=== PATIENT | male | born 1950 | race African-American/Black ===

== ENCOUNTER 2016-12-14 03:21 | Inpatient (IN) | payer MEDICARE, OTHER ==
[2016-12-11 12:53] LABS: BASOPHILS 0.3 %; BASOPHILS ABSOLUTE 0.01 10/3/uL (0.0-0.16); EOSINOPHILS 5.5 %; EOSINOPHILS ABSOLUTE 0.19 10/3/uL (0.0-0.53); HEMOGLOBIN 10.2 g/dL (13.6-17.8); IMMATURE GRANULOCYTES 0.3 %; IMMATURE GRANULOCYTES ABSOLUTE 0.01 10/3/uL (0.0-0.11); LYMPHOCYTES 27.3 %; LYMPHOCYTES ABSOLUTE 0.95 10/3/uL (0.67-4.30); MEAN CORPUS HGB CONC 32.9 g/dL (32.0-36.0); MEAN CORPUSCULAR HEMOGLOB 27.3 pg (26.0-34.0); MEAN CORPUSCULAR VOLUME 82.9 fL (80-100); MONOCYTES 9.8 %; MONOCYTES ABSOLUTE 0.34 10/3/uL (0.21-1.20); NEUTROPHILS 56.8 %; NEUTROPHILS ABSOLUTE 1.98 10/3/uL (2.02-8.40); PLATELET COUNT 299 10/3/uL (150-400); RBC DISTRIBUTION WIDTH 17.9 % (12.0-16.0); RED CELL COUNT 3.74 10/6/uL (4.7-6.1); RETICULOCYTE COUNT 1.7 % (0.5-2.5); RETICULOCYTE COUNT ABSOLUTE 63.6 10/3/uL (20.2-119.8); WHITE BLOOD CELLS 3.5 10/3/uL (4.5-10.5)
[2016-12-11 12:56] LABS: MANUAL DIFF NO %
[2016-12-11 13:11] LABS: ANISOCYTOSIS 1+ (5-10/OIF) (0-5/OIF); PLATELET ESTIMATE ADQ (ADEQUATE); POIKILOCYTOSIS 1+ (5-10/OIF) (0-5/OIF); TARGET CELLS FEW (3-10/OIF) (0-1/OIF)
[2016-12-11 13:12] LABS: ELLIPTOCYTES 1+ (3-10/OIF) (0-2/OIF); HYPOCHROMIA 1+ (3-10/OIF) (0-2/OIF); MICROCYTES 1+ (5-10/OIF) (0-5/OIF)
[2016-12-11 13:14] LABS: T PROTEIN (ELECT)(NOT OR 6.8 G/DL (6.0-8.5)
[2016-12-11 13:25] LABS: A/G RATIO 1.1 (0.7-1.9); ALBUMIN 3.6 G/DL (3.5-5.0); ALKALINE PHOSPHATASE 92 U/L (45-117); BUN (BLOOD UREA NITROGEN) 18 MG/DL (6-23); CHLORIDE, SERUM 108 MMOL/L (96-112); CO2 (CARBON DIOXIDE) 28 MMOL/L (24-34); CREATININE 1.21 MG/DL (0.70-1.30); GFR AFRICAN AMERICAN 72 ML/MIN (>=60); GFR NON AFRICAN AMERICAN 62 ML/MIN (>=60); GLOBULIN 3.3 G/DL (2.5-4.1); GLUCOSE, SERUM 111 MG/DL (60-99); IMMUNOGLOBULIN A 80 MG/DL (70-420); IMMUNOGLOBULIN G 1110 MG/DL (673-1464); IMMUNOGLOBULIN M 31 MG/DL (30-270); PHOSPHORUS, SERUM 4.7 MG/DL (2.5-4.5); POTASSIUM, SERUM 4.8 MMOL/L (3.5-5.3); SGOT(AST) 15 U/L (5-40); SGPT(ALT) 15 U/L (5-65); SODIUM, SERUM 143 MMOL/L (135-148); TOTAL BILIRUBIN 0.2 MG/DL (0-1.2); TOTAL PROTEIN 6.9 G/DL (6.0-8.5)
[2016-12-13 11:34] LABS: A/G 1.48 RATIO (0.9-2.10); ABNORMAL PEAK 1 0.13 G/DL; ALB RELATIVE % 59.7 % (60.0-89.0); ALBUMIN (ELECTRO) 4.06 GM/DL (3.2-5.5); ALPHA 1 (ELECTRO) 0.21 GM/DL (0.1-0.4); ALPHA 1 RELAT % (NOT ORD) 3.1 % (1.0-4.0); ALPHA 2 (ELECTRO) 0.82 GM/DL (0.5-1.10); ALPHA 2 RELAT % 12.1 % (4.5-26.0); BETA GLOBULIN (SPE) 0.69 GM/DL (0.60-1.30); BETA RELATIVE % 10.1 % (9.0-22.0); GAMMA GLOBULIN (SPE) 1.02 G/DL (0.70-1.60)
[2016-12-13 19:02] LABS: KAPPA FLC 2.14 mg/dL (0.33-1.94); KAPPA LAMBDA FLC RATIO 1.24 (0.26-1.65); LAMBDA FLC 1.73 mg/dL (0.57-2.63)
--- NOTE | ~2016-12-14 | DS ---
Discharge Summary [facility] [address] [place]. [address] NAME: ERICKA ARCE : 50 STATUS : DIS IN PAT#: [id number] AGE: 66 ADM/REG DATE : 12/14/16 MR#: [id number] REPORT SERV DATE: 12/17/16 DICTATED BY: JOSEPH PHILIP DATE: 12/15/16 REPORT STATUS : Draft TRANSCRIBED BY: MODL DATE: 12/15/16 ADMISSION DATE: 12/14/2016 DISCHARGE DATE: 12/15/2016 DISCHARGE DIAGNOSES: 1. Toxic metabolic encephalopathy, now resolved. 2. Multiple myeloma. 3. Chronic pain syndrome. CONSULTANTS DURING THIS HOSPITALIZATION: Dr. Reggie Solis of Neurology. INVASIVE PROCEDURES DONE DURING THIS HOSPITALIZATION: Lumbar puncture. BRIEF HISTORY OF PRESENT ILLNESS: The patient is a 66-year-old male, whose care has been rendered outside [facility], mainly in [place] and [place] for multiple myeloma, came in with jerking, lethargy, and confusion. For a detailed history and physical exam, please see note dictated by Dr. Serafin Gamble on 12/14/2016. HOSPITAL COURSE: After being admitted to the hospital, this patient initially was thought to have toxic metabolic encephalopathy, anomalous significance. He underwent a lumbar puncture and the CSF fluid was completely negative without any evidence of any acute meningitis. Neurology saw the patient in consultation and thought that this patient may have had withdrawal from his pain medications as he took his sister's baclofen to supplement when he ran out of his oxycodone and OxyContin. He gives multiple different story lines about what happened to his pain medications. I did try to contact the physicians in [place], his palliative care physician; however, I have not had a return phone call from them. We did do an MRI/MRA of his brain and neck, which were all negative. CT initially done in the emergency room was negative as well. At this point, I have discussed with the patient that I can give him five days of oral pain medications to take in the home setting and then he would have to follow up with his physicians in [place] for further treatment. He understands and agrees. We have discussed about restraining from taking other people's medications as well. DISCHARGE DISPOSITION: Home. DISCHARGE ACTIVITY: As tolerated. DISCHARGE DIET: Low-sodium diet. DISCHARGE MEDICATIONS: 1. OxyContin SR 20 mg p.o. twice daily, #10 with no refills given. 2. Oxycodone 5 mg p.o. four times daily. He will have to get this from his oncologist. 3. Zovirax 800 mg twice daily. DISCHARGE FOLLOWUP: With his oncologist in [place] and palliative care physician. Discharge Summary [address] [place]. [address] NAME: ERICKA ARCE : 50 STATUS : DIS IN PAT#: [id number] AGE: 66 ADM/REG DATE : 12/14/16 MR#: [id number] REPORT SERV DATE: 12/17/16 DICTATED BY: JOSEPH PHILIP DATE: 12/15/16 REPORT STATUS : Draft TRANSCRIBED BY: KRISTY DATE: 12/15/16 More than 30 minutes spent planning this patient's discharge, reconciling medications, writing prescriptions, discussing hospital care, and followup with the patient and documenting this discharge. SEDA/KRISTY Joseph Philip M.D. / [id number] CC: Rakan Faustin MD Kelly Trudy
--- NOTE | ~2016-12-14 | CN ---
Consultation Report [facility] [address] [place]. [address] NAME: ERICKA ARCE : 50 STATUS : ADM Ana PAT#: [id number] AGE: 66 ADM/REG DATE : 12/14/16 MR#: [id number] REPORT SERV DATE: 12/14/16 DICTATED BY: KAYE ACOSTA DATE: 12/14/16 REPORT STATUS : Draft TRANSCRIBED BY: MODL DATE: 12/14/16 NEUROLOGY CONSULTATION DATE OF CONSULTATION: 12/14/2016 REASON FOR CONSULTATION: Encephalopathy and seizure, history of multiple myeloma. PCP: (His PCP is in [place]). The patient is here visiting his sister. ONCOLOGIST: Dr. Pepe Martin from the [facility]. HOSPITALIST: Dr. Joseph Philip. HISTORY OF PRESENT ILLNESS: The patient is a 66-year-old male, who was diagnosed with multiple myeloma back in September of 2015. He has had stem-cell transplantation and chemotherapy. His last stem-cell transplant was done in October of 2016, and his chemotherapy in November of 2016. He has been deemed "in remission." The patient flew down from [place] to visit his sister this month. According to the patient, he had to ship several things home because he was unable to carry it back in his suitcase. He must have accidentally "packed his narcotics," because by Saturday, he could not find his oxycodone or his OxyContin. Consequently, he has not taken his narcotics since Saturday. , the patient was out eating ice cream with his family. He was in [place], and about 3 p.m. he suddenly felt very "dizzy." He became diaphoretic and hot. His stated that he had a strange staring look on his face. They got him into the car and he started to experience nausea and vomiting. He also had "shakes." They brought him to the emergency room for further evaluation and treatment. Upon further questioning, the admits that she gave him some of her baclofen, which she takes for her back pain. She takes 10 mg at a time. She gave him four of those, and yesterday he took two baclofen in the morning and two in the evening. PAST MEDICAL HISTORY: Multiple myeloma, hyperlipidemia, hypertension, and obstructive sleep apnea. PAST SURGICAL HISTORY: Left rotator cuff repair, right leg surgery, and hernia repair. CURRENT MEDICATIONS: Oxycodone 15 mg q.i.d., OxyContin 20 mg b.i.d., and acyclovir 800 mg t.i.d. ALLERGIES: NONE. SOCIAL HISTORY: The patient is . He lives with his in [place]. He has one daughter, who lives in [place]. He is retired from maintenance work. He is a remote smoker. Drinks alcohol socially and denies any use of recreational drugs. Consultation Report [place] [address] [id number] [facility] [place]. [address] NAME: ERICKA ARCE : 50 STATUS : ADM Ana PAT#: [id number] AGE: 66 ADM/REG DATE : 12/14/16 MR#: [id number] REPORT SERV DATE: 12/14/16 DICTATED BY: KAYE ACOSTA DATE: 12/14/16 REPORT STATUS : Draft TRANSCRIBED BY: KRISTY DATE: 12/14/16 FAMILY HISTORY: The patient's mother in her age 80s from congestive heart failure. His father in his 80s from colon cancer. He has two sisters who are relatively healthy. REVIEW OF SYSTEMS: For pertinent positives, please refer to the HPI. PHYSICAL EXAMINATION: GENERAL: The patient is a 66-year-old male, who is afebrile. VITAL SIGNS: Heart rate 80, respiratory rate 16, O2 saturations on room air 99%, and blood pressure 139/88. NEUROLOGIC: The patient is alert. He is oriented to person, place, and time. He is inappropriate at times, but will follow commands. Pupils are 4 mm PERRLA. Cranial nerves 2 through 12 are intact. Cpvvtm-pv-uxox, vixk-ft-gevp, no ataxia. He has no nuchal rigidity. Signs no pronator drift. He does have asterixis. No myoclonus. Upper extremity strength is 5/5. Upper DTRs 2+ bilaterally. No sensory deficits. Lower extremity strength is 5/5. Lower DTRs 2+ bilaterally. Downgoing toes. No reported sensory deficits. NECK: No carotid bruits, JVD, or thyromegaly. CHEST: Lung sounds are clear. CARDIAC: Regular rate and rhythm with a grade 1/6 systolic murmur. LABORATORY DATA: CBC is normal. BMP is normal. Lactate 2 and ammonia is less than 10. TSH is 0.357. Cerebrospinal fluid results, opening pressure was 10 cm of water. Glucose 83, protein 52.6. Serum protein electrophoresis, abnormal immunofixation, shows monoclonal IgG, kappa-lambda, FLC is mildly elevated at 2.14. ASSESSMENT/PLAN: 1. Acute metabolic encephalopathy, most likely due to encephalopathy which is resolving. 2. Narcotic withdrawal. Hospitalist will start the patient back on his narcotics. The patient will be given folate and thiamine. He was instructed not to abruptly withdraw his narcotic medications without assistance from a physician. He was also instructed not to take other people's medications. 3. Possible seizure. The patient is on seizure precautions. An EEG will be done while he is here in the hospital. 4. To rule out the remote possibility of stroke, the patient will undergo MRI of the brain with and without gadolinium and MRA of the head and neck. Thank you again for including us in consultation. We will continue to follow with you. MARIANA/KRISTY ERUM Monte / [id number] Consultation Report [address] [address] NAME: ERICKA ARCE : 50 STATUS : ADM Ana PAT#: [id number] AGE: 66 ADM/REG DATE : 12/14/16 MR#: [id number] REPORT SERV DATE: 12/14/16 DICTATED BY: KAYE ACOSTA DATE: 12/14/16 REPORT STATUS : Draft TRANSCRIBED BY: KRISTY DATE: 12/14/16 CC: Joseph Philip M.D.
--- NOTE | ~2016-12-14 | EEG ---
Electroencephalogram [address] [place]. [address] NAME: ERICKA ARCE : 50 STATUS : DIS IN PAT#: [id number] AGE: 66 ADM/REG DATE : 12/14/16 MR#: [id number] REPORT SERV DATE: 12/18/16 DICTATED BY: REGGIE SOLIS DATE: 12/17/16 REPORT STATUS : Draft TRANSCRIBED BY: KRISTY DATE: 12/17/16 REQUESTING PHYSICIAN: Joseph Philip M.D. INTERPRETING PHYSICIAN: Reggie Solis M.D. REASON FOR EEG: New onset seizures, history of chronic pain, possible narcotic withdrawal. 23 surface electrodes, 10-20 international placement was used. The patient was noted to be awake, drowsy, and asleep throughout the study. The background activity consisted of moderate voltage, relatively organized 9-10 cycles per second located in the posterior head regions. This activity attenuated moderately well with the eye opening maneuvers. During periods of light sleep, no significant abnormalities were detected; however, patient was observed to have loud snoring. The patient's supervisor cytology showed sinus rhythm, rate of approximately 72 beats per minute. No significant asymmetry of cerebral activity was noted. There was no evidence of paroxysmal epileptiform activity during this study. IMPRESSION: ESSENTIALLY NORMAL EEG, MODERATE AMOUNT OF LOW-VOLTAGE BETA RANGE ACTIVITY WAS NOTED WHICH MAY REPRESENT MEDICATION EFFECT. THE PATIENT WAS ALSO OBSERVED TO HAVE A LOUD SNORING DURING HIS SLEEP. RECOMMEND AN OUTPATIENT POLYSOMNOGRAPHY STUDY TO RULE OUT OBSTRUCTIVE SLEEP APNEA. NO EVIDENCE OF ASYMMETRY OR PAROXYSMAL ACTIVITY. NO PAROXYSMAL FEATURES WERE DETECTED DURING THIS STUDY. CLINICAL CORRELATION IS RECOMMENDED. PRITESH/KRISTY Reggie Solis MD / [id number] CC: Joseph Philip M.D.
--- NOTE | ~2016-12-14 | HP ---
History And Physical [address] [id number] [place]. [address] NAME: ERICKA ARCE : 50 STATUS : ADM Ana PAT#: [id number] AGE: 66 ADM/REG DATE : 12/14/16 MR#: [id number] REPORT SERV DATE: 12/14/16 DICTATED BY: KENNEDY RODRIGUEZ DATE: 12/14/16 REPORT STATUS : Draft TRANSCRIBED BY: MODL DATE: 12/14/16 DATE OF ADMISSION: 12/14/2016 CHIEF COMPLAINT: A 66-year-old male with history of chemotherapy and stem cell transplant for multiple myeloma, now presenting with severe encephalopathy, somnolence, and convulsions. HISTORY OF PRESENTING ILLNESS: The patient's history was obtained through an interview with the patient's (phone #[phone]), a limited interview with the patient himself. Apparently, the patient has been undergoing treatments for multiple myeloma with chemotherapy and stem cell transplant. To the best of our knowledge, he last had a stem- cell transplant in mid 10/2016 and then had chemotherapy in early 11/2016 (according to ). He was first diagnosed with multiple myeloma in 09/2015 and now is considered in "remission" according to the family. He is seen by Dr. Pepe Martin at the [facility] at fax #[phone]. It is in this context the patient was feeling quite well from his recent treatments, decided to come visit his sister, who is here in the [place] area, but then, about 3 p.m. on the afternoon leading up to admission, he had a sudden onset of somnolence, fatigue, and mental status changes. He became diaphoretic, had nausea, and one episode of vomiting at home (he has also had vomiting here in our hospital). He has had no real pain complaints. He used to have a right-sided PICC line and had some discomfort in that arm and ever since it was taken out a few weeks ago, has been complaining of pain still in that arm, but is unable to describe the pain now. He denies to us now any headache or chest pain, abdominal pain, or back pain and apparently, his was unaware of any pain complaints either prior to this presentation. The also describes jerking spells and while I am evaluating him here, he indeed does shake often, but it is not classic seizure-like activity, as the patient will often start jerking and still be able to respond to questions. He lost urine continence quite frequently throughout the last 24 hours and according to his , it is as described as being "completely out of it." No fevers or chills despite diaphoresis. He has had a poor appetite for a few days. He has no baseline dementia or mental status problems. REVIEW OF SYSTEMS: Otherwise, a 14-point review of systems was obtained and was negative, although could question validity in light of the patient's inability to answer for himself. History And Physical [address] [address] NAME: ERICKA ARCE : 50 STATUS : ADM Ana PAT#: [id number] AGE: 66 ADM/REG DATE : 12/14/16 MR#: [id number] REPORT SERV DATE: 12/14/16 DICTATED BY: KENNEDY RODIRGUEZ DATE: 12/14/16 REPORT STATUS : Draft TRANSCRIBED BY: KRISTY DATE: 12/14/16 PAST MEDICAL HISTORY: 1. Multiple myeloma diagnosed 09/2015, status post chemotherapy and stem cell transplant. 2. Elevated cholesterol. 3. Hypertension. 4. Obstructive sleep apnea. 5. No cardiac disease. PAST SURGICAL HISTORY: 1. Left rotator cuff repair. 2. Right leg surgery. 3. Hernia repair. ALLERGIES: NO KNOWN DRUG ALLERGIES AT THIS TIME. SOCIAL HISTORY: Quit smoking 08/2016. Drinks alcohol socially, but none recently. He and his live in [place]. They have been for 13 years. He is visiting his sister here in [place]. He has one daughter, who lives in [place], and he is retired from doing maintenance work. FAMILY HISTORY: No known cancer in the family. CURRENT MEDICATIONS: Unknown at this time. We have asked pharmacy to help us compile a medication list. PHYSICAL EXAMINATION: VITAL SIGNS: Temperature 97.6, pulse 85, blood pressure 133/85, respiratory rate 18, O2 saturation 98% on room air. GENERAL: An ill-appearing male. He is quite somnolent. I am able to arouse him with sternal rub and other painful stimuli only. He does not respond to vocal stimuli. At times, he becomes extremely agitated, but he does not appear in any distress such as no shortness of breath, distress, and no pain distress behavior. HEENT: Pupils equal, round, and reactive to light. No conjunctival pallor. No scleral icterus. Nares are patent. Oropharynx is clear of obstruction. Moist mucous membranes. NECK: Trachea midline. No thyromegaly. LYMPH: No cervical lymphadenopathy. No supraclavicular lymphadenopathy. RESPIRATORY: Clear to auscultation at bases. No wheezes, rales, or rhonchi. Normal respiratory effort. CARDIOVASCULAR: Regular rate and rhythm. No murmurs, rubs, or gallops. No extremity edema is appreciated. ABDOMEN: Soft, nontender, nondistended. Normal bowel sounds auscultated throughout. No organomegaly. DERMATOLOGICAL: Warm and dry extremities. No pallor. No cyanosis. PSYCHIATRIC: Very somnolent. Only arousable to painful stimuli. An animated affect. Very irritable. NEUROLOGICAL: Very difficult to assess, as the patient does not cooperate with cranial nerve testing. He is moving all four extremities. He actually got up at one point to try and History And Physical [address] [address] NAME: ERICKA ARCE : 50 STATUS : ADM Ana PAT#: [id number] AGE: 66 ADM/REG DATE : 12/14/16 MR#: [id number] REPORT SERV DATE: 12/14/16 DICTATED BY: KENNEDY RODRIGUEZ DATE: 12/14/16 REPORT STATUS : Draft TRANSCRIBED BY: MODJarett DATE: 12/14/16 ambulate. He is very unsteady in his gait, but it does not seem that he is falling off to one side or another particularly. LABORATORY DATA: White blood cell count 7.4, hemoglobin 10, hematocrit 35, platelets 278, ammonia level 51. Liver enzymes within normal limits. Troponin negative. INR 0.9. Sodium 139, potassium 4.1, chloride 104, bicarb 22, BUN 20, creatinine 0.1, glucose 164. STUDIES: CT angiogram of the brain and CT scan without contrast of the brain from [facility] was reported as "negative." ASSESSMENT AND PLAN: 1. Severe encephalopathy. This is quite an extreme presentation, as the patient was with no underlying dementia or other mental status problems within 24 hours and now is completely altered. I discussed the case with neurologist, Dr. Jackson. We will obtain stat fluoroscopy-guided lumbar puncture to rule out some kind of meningitis process and will also check later on this morning an MRI of the brain and an EEG. 2. Multiple myeloma considered "in remission," but had recent chemotherapy and stem cell transplant within the last month or two. We will request records from Dr. Pepe Martin at the [facility], fax. 3. Elevated ammonia. We will try lactulose. KPL/MODL Kennedy Rodriguez M.D. / [id number] CC: Joseph Philip M.D.
[2016-12-14 09:09] LABS: BASOPHILS 0 %; EOSINOPHILS 0.8 %; EOSINOPHILS ABSOLUTE 0.05 10/3/uL (0.0-0.53); HEMATOCRIT 29.4 % (40.0-51.0); HEMOGLOBIN 9.9 g/dL (13.6-17.8); IMMATURE GRANULOCYTES 0.2 %; IMMATURE GRANULOCYTES ABSOLUTE 0.01 10/3/uL (0.0-0.11); LYMPHOCYTES 17.5 %; LYMPHOCYTES ABSOLUTE 1.05 10/3/uL (0.67-4.30); MEAN CORPUS HGB CONC 33.7 g/dL (32.0-36.0); MEAN CORPUSCULAR HEMOGLOB 27.2 pg (26.0-34.0); MEAN CORPUSCULAR VOLUME 80.8 fL (80-100); MEAN PLATELET VOLUME 8.9 fL (9.2-13.0); MONOCYTES 7.7 %; MONOCYTES ABSOLUTE 0.46 10/3/uL (0.21-1.20); NEUTROPHILS 73.8 %; NEUTROPHILS ABSOLUTE 4.42 10/3/uL (2.02-8.40); PLATELET COUNT 255 10/3/uL (150-400); RBC DISTRIBUTION WIDTH 17.7 % (12.0-16.0); RED CELL COUNT 3.64 10/6/uL (4.7-6.1)
[2016-12-14 09:10] LABS: MANUAL DIFF NO %
[2016-12-14 09:20] LABS: PARTIAL THROMBO TIME 31.4 SEC (22.5-37.2)
[2016-12-14 09:21] LABS: INTERNATIONAL NORMAL RATI 1.1 UNITS (-); PROTIME (NOT ORD) 13.6 SEC (12.0-14.5)
[2016-12-14 09:27] LABS: TOTAL PROTEIN, CSF 52.6 MG/DL (15-45)
[2016-12-14 09:27] LABS: AMMONIA < 10 UMOL/L (11-32)
[2016-12-14 09:33] LABS: A/G RATIO 0.9 (0.7-1.9); ALBUMIN 3.3 G/DL (3.5-5.0); ALKALINE PHOSPHATASE 90 U/L (45-117); BUN (BLOOD UREA NITROGEN) 16 MG/DL (6-23); CALCIUM, SERUM 9.2 MG/DL (8.5-10.4); CHLORIDE, SERUM 104 MMOL/L (96-112); CO2 (CARBON DIOXIDE) 25 MMOL/L (24-34); CPK 55 U/L (0-200); CREATININE 0.98 MG/DL (0.70-1.30); GFR AFRICAN AMERICAN 93 ML/MIN (>=60); GFR NON AFRICAN AMERICAN 80 ML/MIN (>=60); GLOBULIN 3.8 G/DL (2.5-4.1); GLUCOSE, SERUM 114 MG/DL (60-99); SGOT(AST) 10 U/L (5-40); SGPT(ALT) 14 U/L (5-65); SODIUM, SERUM 138 MMOL/L (135-148); TOTAL BILIRUBIN 0.4 MG/DL (0-1.2); TOTAL PROTEIN 7.1 G/DL (6.0-8.5); TROPONIN I <0.02 NG/ML (<0.05); ULTRASENSITIVE TSH 0.337 MCIU/ML (0.358-3.740)
[2016-12-14 09:36] LABS: CK-MB 0.6 NG/ML; POTASSIUM, SERUM 3.7 MMOL/L (3.5-5.3)
[2016-12-14 09:42] LABS: CSF APPEARANCE (NOT ORD) CLEAR (CLEAR); CSF BASO 0 % (NO REF RANGE); CSF COLOR (NOT ORD) COLORLESS (COLORLESS); CSF EOS 0 % (0-1); CSF LYMPH (NOT ORD) 50 % (28-96); CSF MONO 50 % (16-56); CSF RBC (NOT ORD) 1 MM3 (NO REFERENCE); CSF SEGS (NOT ORD) 0 % (0-7); CSF WBC (NOT ORD) 1 /uL (0-10); CSF XANTHROCHROMIA NEG (NEG)
[2016-12-14 11:36] LABS: PROCALCITONIN 0.13 ng/mL (<0.5)
[2016-12-14 11:56] LABS: B NATRIURETIC PEPTIDE (BNP) 30.5 PG/ML (< 100.0)
[2016-12-14] MEDS ORDERED: OXYCON20 PO (16:18)
[2016-12-14] MEDS ORDERED: ROXICODONE15 MG PO (16:20)
[2016-12-14] MEDS ORDERED: ZOVI800 PO (16:21)
[2016-12-17 19:07] LABS: HSV DNA TYPE 1 Not Detected (NOTDET); HSV DNA TYPE 2 Not Detected (NOTDET)
== END 2016-12-15 12:34 | disposition home or self-care (01) | DRG 92 ==
LOC: 6NO 03:21
PROVIDERS: Hospitalist
PROC: 009U3ZX Drainage of Spinal Canal, Percutaneous Approach, Diagnostic (ICD-10-PCS; principal; 2016-12-14)
PROC: B01B1ZZ Fluoroscopy of Spinal Cord using Low Osmolar Contrast (ICD-10-PCS; 2016-12-14)
DX: G92 Toxic encephalopathy (principal); C90.01 Multiple myeloma in remission; F11.23 Opioid dependence with withdrawal; G89.4 Chronic pain syndrome; T40.2X1A Poisoning by other opioids, accidental (unintentional), initial encounter; G47.33 Obstructive sleep apnea (adult) (pediatric); E78.00 Pure hypercholesterolemia, unspecified; Z87.891 Personal history of nicotine dependence
CPT/HCPCS: 36415; 62270; 70544; 70548; 70553; 71010; 77003; 80053; 82140; 82550; 82553; 82784; 82945; 83605; 83615; 83735; 83880; 83883; 83883-59; 84100; 84145; 84155; 84157; 84165; 84443; 84484; 85025; 85045; 85610; 85652; 85730; 86140; 86334; 87070; 87205; 87529; 87529-59; 89051; 95819; A9270-GY; A9577; J1885; J2405